=== PATIENT | female | born 2000 | race Hispanic/Latino ===

== ENCOUNTER 2023-04-12 13:06 | Emergency (ER) | payer OTHER ==
[~2023-04-12] VITALS: Ht 157.5 cm; Wt 65.1 kg
[2023-04-12 13:47] LABS: BASO % 0.4 % (0.0-1.0); EOS # 0.3 10^3/uL (0.0-0.5); HEMOGLOBIN 13.3 g/dl (12.0-15.5); LYMPH # 2.6 10^3/uL (1.5-5.0); LYMPH % 27.5 % (24.0-44.0); MEAN CORPUSCULAR HEMOGLOBIN 28.8 pg (27.0-33.0); MEAN CORPUSCULAR HGB CONC 33.3 g/dl (32.0-36.5); MEAN CORPUSCULAR VOLUME 86.6 fl (80.0-96.0); MONO # 0.9 10^3/uL (0.0-0.8); MONO % 8.9 % (2.0-8.0); NEUTROPHILS # 5.7 10^3/uL (1.5-8.5); NEUTROPHILS % 59.7 % (36.0-66.0); PLATELET COUNT, AUTOMATED 236 10^3/uL (150-450); RED BLOOD COUNT 4.62 10^6/uL (4.00-5.40); WHITE BLOOD COUNT 9.6 10^3/uL (4.0-10.0)
[2023-04-12 14:18] LABS: LIPASE 32 U/L (12-53)
[2023-04-12 14:20] LABS: ALBUMIN 4.1 G/DL (3.2-5.2); ALKALINE PHOSPHATASE 97 U/L (46-116); ALT/SGPT 14 U/L (7.0-40); AST/SGOT 16 U/L (<34); BILIRUBIN,DIRECT 0.2 MG/DL (<0.4); BILIRUBIN,TOTAL 0.6 MG/DL (0.3-1.2); CK-MB VALUE MASS < 1.0 NG/ML (<3.6); CPK CREATINE PHOSPHOKINASE 75 U/L (34-145); MB/CK RELATIVE INDEX 1.33 (< OR =4); TOTAL PROTEIN 7.5 G/DL (5.7-8.2)
[2023-04-12] MEDS ORDERED: KETOROLAC 30 MG/ML 1ML VIAL IV ONE (14:20)
[2023-04-12] MEDS ORDERED: ISOVUE-370 76% 100ML VIAL As Ordered ONE (14:22)
[2023-04-12] MEDS ORDERED: MIRA3350 PO (15:15)
[2023-04-12] MEDS ORDERED: IBUP-1022 PO (15:15)
[2023-04-12 15:19] LABS: CK-MB VALUE MASS < 1.0 NG/ML (<3.6)
[2023-04-12 15:20] LABS: CPK CREATINE PHOSPHOKINASE 58 U/L (34-145); MB/CK RELATIVE INDEX 1.72 (< OR =4)
[2023-04-12 15:22] VITALS: BP 117/63; TEMP 97.5; O2SAT 100
== END 2023-04-12 15:49 | disposition home or self-care (01) ==
LOC: M ED 13:06
DX: R07.9 Chest pain, unspecified (principal); K59.00 Constipation, unspecified; N83.201 Unspecified ovarian cyst, right side; Z79.1 Long term (current) use of non-steroidal anti-inflammatories (NSAID); Z79.899 Other long term (current) drug therapy
CPT/HCPCS: 36415; 71045; 74177; 80047; 80076; 81001; 82550; 82553; 83690; 84484; 84702; 85025; 85379; 93005; 96374; 99284; J1885; Q9967

== ENCOUNTER 2024-01-04 07:18 | Emergency (ER) | payer OTHER ==
[~2024-01-04] VITALS: Ht 154.9 cm; Wt 63.1 kg
[~2024-01-04 07:18] MED LIST: IBUP-1022 PO; MIRA3350 PO
[2024-01-04 07:58] VITALS: BP 106/68; TEMP 99; O2SAT 96
[2024-01-04] MEDS: IPRATROPIUM 0.5MG/ALBUTEROL 2.5MG INH SOL UD 3ML (DUONEB) NEB ONE (08:13)
[2024-01-04] MEDS: predniSONE 20 MG TAB PO ONE (08:13)
[2024-01-04] MEDS: guaiFENesin/CODEINE SYRUP 5 ML UDC PO ONE (08:13)
[2024-01-04] MEDS ORDERED: MEDR4PAK PO (09:11)
[2024-01-04] MEDS ORDERED: BREAMIS10 MC (09:11)
[2024-01-04] MEDS ORDERED: PROA1AER2 INH (09:11)
== END 2024-01-04 09:28 | disposition home or self-care (01) ==
LOC: M ED 07:18
DX: J20.9 Acute bronchitis, unspecified (principal)
CPT/HCPCS: 87486; 87581; 87633; 87798; 99283; J7512